=== PATIENT | male | born 1975 | race Caucasian/White ===

== ENCOUNTER 2025-04-19 11:59 | Outpatient (CLI) | payer OTHER, SELFPAY ==
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
--- OUTSIDE RECORDS SUMMARY | 2025-04-18 09:40 | XMS_ITS ---
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 Alcohol/Drug Use - Alcohol abuse runs on mother's side, doesn't know father's side Bipolar - Possibly father - - - - - - - - - - -. * Medications: T aking Suboxone 4-1 MG Film 1 film under the tongue and allow to dissolve Sublingual 3 times a day , Taking Cephalexin 500 MG Tablet 1 tablet Orally every 6 hrs , Taking FLUoxetine HCl 20 MG Capsule 1 capsule Orally Once a day , Taking OLANZapine 10 MG Tablet 1 tablet Orally at bedtime , Taking hydrOXYzine Pamoate 25 MG Capsule 1 capsule as needed Orally 4 times a day , Taking Nicotine 21 MG/24HR Patch 24 Hour 1 patch to skin Transdermal Once a day , Not-Taking Mirtazapine 15 MG Tablet 1 tablet at bedtime Orally Once a day , Not-Taking FLUoxetine HCl 40 MG Capsule 1 capsule Orally Once a day , Not-Taking OLANZapine 10 MG Tablet 1 tablet Orally Once a day , Not-Taking Narcan 4 MG/0.1ML Liquid as directed Nasally , Not-Taking Buprenorphine HCl-Naloxone HCl 8-2 MG Film 1 film under the tongue and allow to dissolve Sublingual once daily around noon , Not-Taking Buprenorphine HCl-Naloxone HCl 12-3 MG Film 1 film under the tongue and allow to dissolve Sublingual once in the morning and once in the evening , Not-Taking Miconazole Nitrate 2 % Cream 1 application Externally Twice a day , Notes to Pharmacist: on CRU, thanks, Medication List reviewed and reconciled with the patient * Allergies: N o Known Drug Allergy. Objective: * Vitals: I nitials: KS, Wt:130.6, Ht: 70, BMI:18.74, BP:106/86, HR:69, Oxygen sat %:98, Temp:98.3, RR:18. * Examination: G eneral Examination: GENERAL APPEARANCE: a lert, in no acute distress. HEAD: n ormocephalic, atraumatic. EYES: B OTH EYES, sclera anicteric, pupils equal, round, reactive to light and accommodation , extraocular movement intact (EOMI). EARS B OTH EARS, normal. NOSE: n mita patent. ORAL CAVITY: m ucosa moist, missing teeth, carious teeth.? THROAT: p harynx normal. NECK/THYROID: n cole supple , no thyromegaly. SKIN: w arm and dry, no rashes, no suspicious lesions. HEART: r egular rate and rhythm with occassional pauses, S1, S2 normal, no S3, S4, no murmurs, rubs, gallops. LUNGS: r espirations regular and easy, clear to auscultation bilaterally, no wheezes, rales, rhonchi, clear anteriorly and posteriorly, good air movement. ABDOMEN: b owel sounds present, soft, nontender, nondistended, no masses palpable, no organomegaly . EXTREMITIES: n o edema. PERIPHERAL PULSES: 2 + throughout. NEUROLOGIC: n onfocal, gait normal. PSYCH: a ppropriate affect. Assessment: * Assessment: 1. A dult general medical examination - Z00.00 (Primary) 2 . I V drug user - F19.90 3 . O pioid use disorder - F11.99 4 . I rregularly irregular heart rhythm - I49.9 5 . N ausea - R11.0 Plan: * Treatment: Value Reference Range B AC .000 ?LAB: QuantiFERON-TB Gold Plus (611034) (Ordered for 04/18/2025) ?LAB: HIV Screen *HIV 1, 2 Ab, p24 Ag ([id number]) (Ordered for 04/18/2025) ?LAB: 14 Panel Urine Drug Screen (Ordered for 04/18/2025) (Collection Date & Time - 04/18/2025)* Value Reference Range T HC neg * C OC neg * M OP (OPI) neg * A MP neg * M ET neg * B AR neg * B ZO neg * M DMA neg * M TD neg * O XY neg * P CP neg * B UP pos * T CA neg * F TY neg Notes: Admit to the [facility] and initiate standing/protocol orders: The following PRN medications may be self-administered by patients under the supervision of approved staff or administered by nursing staff: * Ibuprofen 200mg, 2-4 tablets by mouth (with food) every 6 hours as needed for pain (unless on lithium). (NOTE: Ibuprofen and acetaminophen may be given together, but alternating is recommended for continuous pain relief. * Guaifenesin 400 mg, 1 tablet by mouth every four hours as needed for cough and chest congestion (take with large glass of water). * Loratadine 10 mg, 1 tablet by mouth daily as needed for allergies, watery itchy eyes, or sinus drainage. * Throat Lozenges, up to 4 tablets by mouth every three to four hours as needed for sore throat. * Antacid tablets, 1-2 tablets by mouth every one to two hours as needed for indigestion or heart burn. If the client prefers liquid, could use: Liquid Antacid : 1 ounce by mouth up to four times dailyas needed for indigestion or heartburn * Omeprazole 20mg, 1 capsule by mouth once daily for 14 days for frequent heartburn (frequent heartburn is more than 2 episodes per week). Do not exceed 14 days. Do not give to client already taking a proton-pump inhibitor: esomeprazole (Nexium), lansoprazole (Prevacid), pantoprazole (Protonix), rabep razole (Aciphex), dexlansoprazole (Dexilant) * Zofran ODT disintegrating (under the tongue) 4 mg, 1-2 tablets every 8 hours as needed for nausea/vomiting. * Milk of Magnesia (MOM): 1 ounce (30 milliliters) by mouth every day as needed for constipation.ORMiralax: Stir and fully dissolve 17 grams (1 packet or 1 capful to measured line) in any 4 to 8 ounces of beverage then drink once daily for constipation. Do not use for more than 7 days.ORDocusate 100 mg, 1 capsule twice daily as needed for constipation * Hydrocortisone 1% Cream, apply topically (to the skin) to the affected area up to three times dailyas needed for itching or inflammation (avoid eyes and genitals). * 2% Antifungal Cream, apply topically (to the skin) as directed as needed to affected areas for athlete's foot or jock itch. * Triple Antibiotic Ointment, apply topically (to the skin) up to three times daily as needed for minor cuts and scrapes. * Carmex or Chapstick, apply topically (to the skin) as needed for chapped lips and skin. * Orajel, apply to affected areas as needed for mouth or tooth pain. * Lubricating Eye Drops, instill 1-2 drops to the affected eye(s) as needed for dry/irritated eye(s). * Hemorrhoid medications, apply to affected area according to directions as needed for hemorrhoid discomfort and itch. * Nix (Permethrin 1%) cream 2 ounces, apply topically (to the skin) as directed as needed for head lice. * Sunscreen 30 SPF, Apply to exposed skin prior to exposure to sun. The following PRN medications must be approved by nursing staff before self- administration by patients: * Diphenhydramine 25 mg, 2 tablets by mouth every 4 hours as needed for allergic reaction or itchy rash.Caution: Do not use hydroxyzine within 4 hours of diphenhydramine and vice versa. * Loperamide 2 mg capsules, may give two capsules by mouth for the initial dose, followed by one capsule up to 3 times a day as needed for diarrhea. * Acetaminophen 500 mg, 1 - 2 tablets by mouth every six hours as needed for pain. (NOTE: Ibuprofen and acetaminophen may be given together, but alternating is recommended for continuous pain relief). * Oxygen-May administer oxygen 2L/min via nasal cannula if O2 saturation is less than 92%, AND clientcomplains of shortness of breath. Target O2 saturation is 94-98%.Caution: Remember too much oxygen can be detrimental to a client with COPD. Oxygen is a drug and should be delivered by trained staff only. Nurses may remove superficial splinters and sutures from skin lacerations. May apply gauze or bandages to any weeping wounds. Contact nursing if there is pus, a foul odor, increased pain/redness/swelling, or if soaking through bandages. ??2.?IV drug user?LAB: Hepatitis B Surface Antigen (HBsAg Screen) (Ordered for 04/18/2025) 3.?Irregularly irregular heart rhythm?Imaging: Electrocardiogram (EKG) (Ordered for 04/18/2025) Notes: Patient asymptomatic, states he has had the pauses for years, but no record of EKG perfromedin past here, will get one today.??4.?Nausea? Start Ondansetron HCl Tablet, 4 MG, 1 tablet, Orally, every 8 hours As needed for nausea, 7 days, 21 Tablet, Refills 0.??5.?Others? Notes:Continue treatment as recommended by [facility] staff. Encouraged patient to obtain routine medical care with patient's own primary care provider or establish as a patient at [facility] if no current primary care provider.?? * Recommended Wellness and Pre vention Guidelines: * S tatus A lert L ast Done N ext Due A ction Taken N ONCOMPLIANT A lcohol use screening - 1 06/19/2024 - - N ONCOMPLIANT C holesterol screen (genl pop) - 1 06/19/2024 - - N ONCOMPLIANT C olorectal cancer screening - 1 06/19/2024 - - N ONCOMPLIANT I nfluenza vaccine (over 50) - 1 06/19/2024 - - * Preventive Medicine: Counseling: S MOKING: P atient counselled on the dangers of tobacco use and urged to quit. 1 06/19/2024 .. * Follow Up: p rn * * Electronic signature of Willis Hayes on 04/19/2025 at 12:11 PM COATING TECHNICIAN Sign off status: Pending * Provider: Janessa Hayes APN Date: 06/19/2024 Generated for Ilan moreno/Alpesh/Kay on: 06/20/2024 12:11 PM COATING TECHNICIAN History and Physical Notes * HPI (History of Present Illness) Category c/o Denies Symptom Duration Details Notes Catego ry Notes Interim History Was hospitalized Yes Emergency room visit Yes Depression Screening PHQ-9 Little interest or pleasure in doing things: More than half the days Feeling down, depressed, or hopeless: No t at all Trouble falling or staying asleep, or sl eeping too much: Nearly every day Feeling tired or having little energy: S everal days Poor appetite or overeating: Nearly ever y day Feeling bad about yourself o r that you are a failure, or have let yourself or your family down: Several days Trouble concentrating on thi ngs, such as reading the newspaper or watching television: More than half the days Moving or speaking so slowly that other people could have noticed; or the opposite, being so fidgety or restless that you have been moving around a lot more than usual: Nearly every day Thoughts that you would be b jorge off or of hurting yourself in some way: Not at all Total Score: 15 Interpretation: Moderately Severe Depres darrin Intervention Depression Screen ing Findings: Positive Follow-Up for Depression: Raul mclaughlin is admitted to a [facility] residential unit where their mental health is monitored - unit nursing staff have access to this encounter note Summary Presents for physical as patient is admitted to Residential Unit at [facility].Patient presents from: homelessConcerns of: Ta useChronic Conditions: Hep C., known heart pauses (pt states he is asymptomatic and has had it for years)Recent Hospitalizations: [facility] (04/09-04/18) for Ta detoxPCP: deniesPsych provider: deniesDrug/ETOH use: fentanyl: 10-20 caps/dayLast time used: 2 weeks agoRoute: IVPrevious Tx: ChestnutWithdrawal s/s: nauseaCigarette/vaping use: 2-3 cigs/daySexual activity: deniesDenies SI/HIHad a sore on L outer ankle, on antibx for it currently. Denies any issues with it anymore. Screening [place] Suicid e Severity Rating Scale (LF) Do you want to initiate with : Screener form 1. Wish to be : Have you wished you were or wished you could go to sleep and not wake up?: No 2. Suicidal Thoughts: Have you actually had any thoughts of killing yourself?: No 6. Suicide Behavior Question: Have you ever done anything,started to do anything, or prepared to end your life?: No Interpretation:: Low Risk Preventative Health and Wellness follow-up Action Plans for Cli nical Quality Measures: Colorectal Cancer Screening:: Discussed need for colorectal cancer screening. Patient declined. . CSSRS Interpretation and Follow Up Plan CSSRS Interpretation and Follow Up Plan CSSRS Screen documented using SF: Yes Risk Disposition from SF: Low - No Follo w Up Plan Required Follow Up Plan: No Follow Up Plan requir ed at this time. Timeframe of Screening: Today Examination Category Field Details Notes Category Notes General Examination GENERAL APPEARANCE: alert, in no a cute distress HEAD: normocephalic, atrau matic EYES: BOTH EYES, sclera an icteric, pupils equal, round, reactive to light and accommodation , extraocular movement intact (EOMI) EARS BOTH EARS, normal NOSE: nares patent THROAT: pharynx normal NECK/THYROID: neck supple , no thy romegaly HEART: regular rate and rhy thm with occassional pauses, S1, S2 normal, no S3, S4, no murmurs, rubs, gallops LUNGS: respirations regular and easy, clear to auscultation bilaterally, no wheezes, rales, rhonchi, clear anteriorly and posteriorly, good air movement ABDOMEN: bowel sounds present , soft, nontender, nondistended, no masses palpable, no organomegaly NEUROLOGIC: nonfocal, gait amee l SKIN: warm and dry, no mary hes, no suspicious lesions EXTREMITIES: no edema PERIPHERAL PULSES: 2+ throughout PSYCH: appropriate affect ORAL CAVITY: mucosa moist, missin g teeth, carious teeth
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
--- NOTE | 2025-04-19 | ECG_ITS ---
Test Date: 2025-04-19 12:24:39 Measurements Intervals Yulan Rate: 58 P: 77 NJ: 153 QRS: -28 QRSD: 106 T: 78 QT: 407 QTc: 401 Interpretive Statements SINUS BRADYCARDIA CANNOT R/O SEPTAL INFARCT, AGE INDETERMINATE BASELINE ARTIFACT- I, II, AVR, V5-V6 ABNORMAL ECG No previous ECG available for comparison Electronically Signed On 04-19-2025 12:29:10 CHIEF ENGINEER'S HELPER by Ryan Gregorio D.O.
--- OUTSIDE RECORDS SUMMARY | 2025-04-19 12:11 | XMS_ITS | Patient Health Record ---
Author Organization [facility] Address [address] [place] [address] Phone [phone] Care Team Providers Care Dispatcher Street Department Name Role Phone Floresita Liu APRN Primary Care Provider [phone] Umesh Coleman Unavailable [phone] Ellie Kraus Unavailable [phone] Sally Perera Unavailable [phone] Francesca Moreland Unavailable [phone] Ac Hayes Unavailable Ellie Sherwood Unavailable [phone] Allergies Allergen (clinical drug ingredient) Drug/Non Drug Allergy documented on EMR Reaction Allergy Type Onset Date Status No Known Drug Allergy Unknown Drug Allergy Active Results Component Value Reference Range Flag Notes Breathalyzer Order date: 04/18/2025 Reviewed date:04/19/2025 11:01:39 AM Interpretation: Performing Lab: Notes/Report: CLARISSE .000 14 Panel Urine Drug Screen Order date: 04/18/2025 Reviewed date:04/19/2025 11:01:39 AM Interpretation: Performing Lab: Notes/Report: THC neg MITZI neg MOP (OPI) neg AMP neg MET neg BAR neg BZO neg MDMA neg MTD neg OXY neg PCP neg BUP pos TCA neg FTY neg 12 Panel Urine Drug Screen Order date: 10/19/2024 Reviewed date:10/19/2024 11:06:35 AM Interpretation: Performing Lab: Notes/Report: THC neg MITZI neg MOP (OPI) neg AMP neg MET neg BAR neg BZO pos MDMA neg MTD neg OXY neg PCP neg BUP pos Hemoglobin A1c* Order date: 10/27/2024 Reviewed date:11/02/2024 10:46:07 AM Interpretation: Performing Lab:[facility] [place] [address] [facility], Phone - [phone], Director - [place] Notes/Report: Hemoglobin A1c 5.6 4.8-5.6 % . Prediabetes: 5.7 - 6.4 Diabetes: >6.4 Glycemic control for adults with diabetes: <7.0 Ambiguous Test Order Attempts to contact your facility to clarify an ambiguous test order were unsuccessful. Please contact the laboratory to verify the request. Specimens are routinely held for 7 days from date of receipt. Ambiguous test order: PLEASE CLARIFY REQUEST FOR: [id number] HCV RNA TIGRE Qual rfx to Quant - NOT ORDERABLE. 12 Panel Urine Drug Screen Order date: 10/15/2024 Reviewed date:10/15/2024 10:19:47 AM Interpretation: Performing Lab: Notes/Report: THC neg MITZI neg MOP (OPI) neg AMP neg MET neg BAR neg BZO neg MDMA neg MTD neg OXY neg PCP neg BUP POS Magnesium, Serum* Order date: 10/15/2024 Reviewed date:10/26/2024 01:10:21 PM Interpretation: Performing Lab:[facility] [place] [address] [facility], Phone - [phone], Director - [place] Notes/Report: Magnesium 2.0 1.6-2.3 mg/dL Phosphorus, Serum* Order date: 10/15/2024 Reviewed date:10/26/2024 01:10:21 PM Interpretation: Performing Lab:[facility] [place] [facility], Phone - [phone], Director - [place] Notes/Report: Phosphorus 4.0 2.8-4.1 mg/dL C-Reactive Protein, Quant Order date: 10/15/2024 Reviewed date:10/26/2024 01:10:21 PM Interpretation: Performing Lab:[facility] [place] [address] [place] [address], Phone - [phone], Director - [place] Notes/Report: C-Reactive Protein, Quant 6 0-10 mg/L Specimen Status Report TNP Test not performed. Insufficient specimen to perform or complete analysis. TEST: [id number] Hepatitis C Quantitation Panel: [id number] Interpretation: Panel: [id number] QuantiFERON-TB Gold Plus (18 2879) Order date: 10/15/2024 Reviewed date:10/26/2024 01:10:21 PM Interpretation: Performing Lab:[facility], [address] [facility], Phone - [phone], [facility] Notes/Report: QuantiFERON Incubation Incubation performed. QuantiFERON-TB Gold Plus Negative Negative No response to M tuberculosis antigens detected. Infection with M tuberculosis is unlikely, but high risk individuals should be considered for additional testing (ATS/IDSA/CDC Clinical Practice Guidelines, 2017). The reference range is an Antigen minus Nil result of <0.35 IU/mL. Chemiluminescence immunoassay methodology QuantiFERON Criteria QuantiFERON-TB Gold Plus is a qualitative indirect test for M tuberculosis infection (including disease) and is intended for use in conjunction with risk assessment, radiography, and other medical and diagnostic evaluations. The QuantiFERON-TB Gold Plus result is determined by subtracting the Nil value from either TB antigen (Ag) value. The Mitogen tube serves as a control for the test. QuantiFERON TB1 Ag Value 0.05 QuantiFERON TB2 Ag Value 0.05 QuantiFERON Nil Value 0.14 QuantiFERON Mitogen Value >10.00 Rapid Plasma Reagin (RPR) Te st With Reflex to Quantitative RPR and Confirmatory Treponema pallidum Antibodies Order date: 10/15/2024 Reviewed date:10/26/2024 01:10:21 PM Interpretation: Performing Lab:[facility], [address] [facility], [place], Phone - [phone], Director - [place] Notes/Report: RPR Non Reactive Non Reactive Interpretation: Syphilis: RPR with Reflex to RPR Titer and Treponemal Antibodies, Traditional Screening and Diagnosis Algorithm Treponemal RPR RPR, Qn Ab Final Interpretation -------- --------- --- Non N/A N/A No laboratory evidence Reactive of syphilis. Retest in 2-4 weeks if recent exposure is suspected. -------- --------- --- Reactive >/=1:1 Non Nontreponemal antibodies Reactive detected. Syphilis unlikely; biological false positive possible. Retest in 2-4 weeks if recent exposure is suspected. -------- --------- --- Reactive >/=1:1 Reactive Treponemal and nontreponemal antibodies detected. Consistent with past or current (potential early) syphilis. Hepatitis C Virus Antibody w /Rflx to Quantitative Real-time PCR ([id number]) Order date: 10/15/2024 Reviewed date:10/26/2024 01:10:21 PM Interpretation: Performing Lab:[facility] [place] [address] [facility], Phone - [phone], Director - [place] Notes/Report: HCV Ab Reactive Non Reactive A Hepatitis C Quantitation TNP Test not performed. Insufficient specimen to perform or complete analysis. Test Information: The barb ntitative range of this assay is 15 IU/mL to 100 million IU/mL. Interpretation: TNP Test not performed. Insufficient specimen to perform or complete analysis. Hepatitis B Surface Antigen (HBsAg Screen) Order date: 10/15/2024 Reviewed date:10/26/2024 01:10:21 PM Interpretation: Performing Lab:[facility] [place] [address] [facility], Phone - [phone], Director - [place] Notes/Report: HBsAg Screen Negative Negative HIV Screen *HIV 1, 2 Ab, p24 Ag ([id number]) Order date: 10/15/2024 Reviewed date:10/26/2024 01:10:21 PM Interpretation: Performing Lab:[facility] [place] [facility], Phone - [phone], Director - [place] Notes/Report: HIV Ab/p24 Ag Screen Non Reactive Non Reactive HIV-1/HIV-2 antibodies and HIV-1 p24 antigen were NOT detected. There is no laboratory evidence of HIV infection. HIV Negative CMP 14 Comprehensive Metabol ic Panel* Order date: 10/15/2024 Reviewed date:10/26/2024 01:10:21 PM Interpretation: Performing Lab:[facility], [address] [facility], Phone - [phone], Director - [place] Notes/Report: Glucose 145 70-99 mg/dL H BUN 11 6-24 mg/dL Creatinine 0.64 0.76-1.27 mg/dL L eGFR 115 >59 mL/min/1.73 BUN/Creatinine Ratio 17 9-20 Sodium 139 134-144 mmol/L Potassium 4.6 3.5-5.2 mmol/L Chloride 103 96-106 mmol/L Carbon Dioxide, Total 21 20-29 mmol/L Calcium 8.9 8.7-10.2 mg/dL Protein, Total 6.1 6.0-8.5 g/dL Albumin 3.7 4.1-5.1 g/dL L Globulin, Total 2.4 1.5-4.5 g/dL Bilirubin, Total 0.2 0.0-1.2 mg/dL Alkaline Phosphatase 98 44-121 IU/L AST (SGOT) 43 0-40 IU/L H ALT (SGPT) 47 0-44 IU/L H CBC With Differential/Platel et* Order date: 10/15/2024 Reviewed date:10/26/2024 01:10:21 PM Interpretation: Performing Lab:[facility], [address] [facility], Phone - [phone], Director - [place] Notes/Report: WBC 5.6 3.4-10.8 x10E3/uL RBC 4.09 4.14-5.80 x10E6/uL L Hemoglobin 11.8 13.0-17.7 g/dL L Hematocrit 37.0 37.5-51.0 % L MCV 91 79-97 fL MCH 28.9 26.6-33.0 pg MCHC 31.9 31.5-35.7 g/dL RDW 13.0 11.6-15.4 % Platelets 309 150-450 x10E3/uL Neutrophils 56 Not Estab. % Lymphs 30 Not Estab. % Monocytes 6 Not Estab. % Eos 7 Not Estab. % Basos 1 Not Estab. % Neutrophils (Absolute) 3.1 1.4-7.0 x10E3/uL Lymphs (Absolute) 1.7 0.7-3.1 x10E3/uL Monocytes(Absolute) 0.4 0.1-0.9 x10E3/uL Eos (Absolute) 0.4 0.0-0.4 x10E3/uL Baso (Absolute) 0.0 0.0-0.2 x10E3/uL Immature Granulocytes 0 Not Estab. % Immature Grans (Abs) 0.0 0.0-0.1 x10E3/uL Breathalyzer Order date: 10/15/2024 Reviewed date:10/15/2024 10:20:06 AM Interpretation: Performing Lab: Notes/Report: CLARISSE 0.000 Reason For Referral Referral Date 04/19/2025 Referral Status Open Reason Colonoscopy Diagnosis 1 Colon cancer screeni (Z12.11) Referral Organization [facility] Referring Provider First Name Ac Referring Provider Last Name Abigail Referring Provider [facility] Referred Provider Specialty Gastroentero logy Referral Priority Routine Medications Medication SIG (Take, Route, Frequency, Duration) Notes Start Date End Date Diagnosis (ICD Code) Status Suboxone 4-1 MG Film 1 film under the tongue and allow to dissolve Sublingual 3 times a day; Duration: 7 days 5 Opioid use disorder (ICD_10 - F11.99) Active Mirtazapine 15 MG Tablet 1 tablet at bedtime Orally Once a day; Duration: 30 days PTSD (post-traumatic stress disorder) (ICD_10 - F43.10) Not-Taking Cephalexin 500 MG Tablet 1 tablet Orally every 6 hrs Adult general medical examination (ICD_10 - Z00.00) Active OLANZapine 10 MG Tablet 1 tablet Orally Once a day; Duration: 30 days Bipolar 1 disorder (ICD_10 - F31.9) Not-Taking FLUoxetine HCl 40 MG Capsule 1 capsule Orally Once a day; Duration: 30 days OCD (obsessive compulsive disorder) (ICD_10 - F42.9) Not-Taking FLUoxetine HCl 20 MG Capsule 1 [...] of both feet (ICD_10 - B35.3) Not-Taking Melatonin 5 MG Tablet 1 tablet at bedtime as needed Orally Once a day; Duration: 30 days 5 Adult general medical examination (ICD_10 - Z00.00) Active Multi Vitamin - Tablet 1 tablet Orally Once a day; Duration: 30 days 5 Adult general medical examination (ICD_10 - Z00.00) Active Narcan 4 MG/0.1ML Liquid as directed Nasally 5 Opioid use disorder (ICD_10 - F11.99) Not-Taking hydrOXYzine Pamoate 25 MG Capsule 1 capsule as needed Orally 4 times a day Adult general medical examination (ICD_10 - Z00.00) Active OLANZapine 10 MG Tablet 1 tablet Orally at bedtime Adult general medical examination (ICD_10 - Z00.00) Active Buprenorphine HCl-Naloxone HCl 12-3 MG Film [...] Opioid use disorder (ICD_10 - F11.99) Not-Taking Ondansetron HCl 4 MG Tablet 1 tablet Orally every 8 hours; Duration: 7 days As needed for nausea 5 Nausea (ICD_10 - R11.0) Active Social History Sex Observation Social History Observation Description Sex Observation Male Sexual Orientation Social History Observation Description Sexual Orientation Straight or heterose xual Gender Identity Social History Observation Description Gender Identity Male SDOH Assessments Date Tool Assessment Assessment LOINC Value Assessment Notes Goals Interventions General Notes 04/18 ALEX ZHANG (JOHN C: [id number] -[id number]) Total Score : 18 What was your release date? 2024 - - - - - - - - - - - ADDITIONAL SOCIAL HISTORY 10/20/2024: - - - - - - - - - - - PERSONAL BACKGROUND HISTORY Describe childhood- Horrible - raised by brother. Mother was service trainer, grandmother lived next door and cooked for [...] lithium, Zyprexa, Klonopin Inpt Psych Hospitalizations - [facility] for depression. Rehab as teenager Suicidal Ideation Hx - Endorses in 20s Suicide Attempt(s) - In 20s - cut self with a broken piece of [place] statute Homicidal Ideation - None Self-Injury/High [...] 04/18/2025 What is your current housing situation? 93457-9 I do not have housing (staying with others, in a hotel, in a long term, living outside on the street, on a beach, or in a park) (UC11048-5) Are you worried about losing your housing? 82282-9 Yes (LA33-6) What is the highest level of school that you have finished? 55793-0 High school diploma or GED (TW14037-0) What is your current work situation? 24668-1 Unemployed and seeking work (RW02249-2) In the past year, have you o r any family members you live with been unable to get any of the following when it was really needed? Check all that apply 87270-8 Medicine or any health care (medical, dental, mental health or vision) (MU25159-4) Food (SR41502-6) Clothing (IE41174-2) Utilities (GX81961-8) Phone (XM64586-5) Has lack of transportation k ept you from medical appointments, meetings, work or from getting things needed for daily living? 79738-0 Yes, it has kept me from medical appointments or from getting my medications (SI71407-7) Yes, it has kept me from non-medical meetings, appointments, work, or getting things needed for daily living (TY88593-8) How often do you see or talk to people that you care about and feel close to? (For example: talking to friends on the phone, visiting friends or family, going to yazdanism or club meetings) 79604-9 Less than once a week (KP17601-5) How stressed are you? Stress is when someone feels tense, nervous, anxious, or can\t sleep at night because their mind is troubled 08440-0 Quite a bit (MO02259-8) In the past year have you sp ent more than 2 nights in a row in a senior living, fpc, nursing home center, or juvenile correctional facility? 73055-2 Yes (LA33-6) Do you feel physically and emotionally safe where you currently live? 99052-7 Yes (LA33-6) In the past year, have you b een afraid of your partner or ex-partner? 71528-7 No (LA32-8) Are you a refugee? I [...] with others, in a hotel, in a long term, living outside on the street, on a [...] phone, visiting friends or family, going to yazdanism or club meetings) Less than once a week How stressed are you? Stress is when someone feels tense, nervous, anxious, or can\t sleep at night because their mind is troubled Quite a bit In the past year have you sp ent more than 2 nights in a row in a senior living, fpc, nursing home center, or juvenile correctional facility? Yes What [...] Provided? Yes Please specify Case Management Follow-up Miscellaneous Social Info Question Answer Notes Method [...] Use Alcohol Use Frequency: Monthly or less Additional Details Category Social Info Options Details Primary Social History Current Diet Stand antonietta Marshallese Diet Section Notes: - - - - - - - - - - - ADDITIONAL SOCIAL HISTORY 10/20/2024: - - - - - - - - - - - PERSONAL BACKGROUND HISTORY Describe childhood- Horrible - raised by brother. Mother was service trainer, grandmother lived next door and cooked for [...] Not working right now, experience in general [employer] History- Hx of drug-related charged Spiritual [...] lithium, Zyprexa, Klonopin Inpt Psych Hospitalizations - [facility] in [place] for depression. Rehab as teenager Suicidal Ideation Hx - Endorses in 20s Suicide Attempt(s) - In 20s - cut self with a broken piece of [place] statute Homicidal Ideation - None Self-Injury/High [...] Problem Status W/U Status Risk Notes Problem Mood disorder (02534814) Mood disorder (F39) Added On:2024 Active confirmed Problem Substance abuse (3563343150) Substance abuse (F19.10) Added On:2024 Active confirmed Problem Posttraumatic stress disorder (70999096) PTSD (post-traumatic stress disorder) (F43.10) Added On:2024 Active confirmed Problem Bipolar 1 disorder (111307433) Bipolar 1 disorder (F31.9) Added On:2024 Active confirmed Problem Neuropathy (674824340) Neuropathy (G62.9) Added On:2024 Active confirmed Problem Overweight (376887972) Over weight (E66.3) Added On:2024 Active confirmed Problem Physical examination, complete (77255278) Adult general medical examination (Z00.00) Added On:2024 Active confirmed Problem Obsessive-compuls raymond disorder (499177841) OCD (obsessive compulsive disorder) (F42.9) Added On:2024 Active confirmed Problem Malnutrition (1839121) Malnutrition (E46) Added On:2024 Active confirmed Problem Cardiac arrhythmia (417358498) Irregularly irregular heart rhythm (I49.9) Added On:2024 Active confirmed Problem Opioid use disorder (1329855445) Opioid use disorder (F11.99) Added On:2024 Active confirmed Problem Viral hepatitis type C (55671380) Hepatitis C test positive (B19.20) Added On:2024 Active confirmed Vital Signs Vital Sign Value Notes Appt Date Heart Rate 65 /min 04/19/2025 Temperature 98.3 degrees Fahrenheit 03/29 Respiratory Rate 18 /min 04/19/2025 Oximetry 99 % 04/19/2025 Blood pressure diastolic 60 mm Hg Height 70 in 04/19/2025 Blood pressure systolic 100 mm Hg 03/29 Weight 135.2 lbs 04/19/2025 BMI 19.4 kg/m2 04/19/2025 Encounters Date Time Type Facility Location Provider Diagnosis 10/22/19 09:40 AM Office Visit [facility] [place] [address] Umesh Coleman 10/29/19 10:20 AM Office Visit [facility] [place] [address] Umesh Coleman 04/18/20 09:40 AM Office Visit, Est Pt., Level 4 (17276) [facility] [place] [address] Ac Hayes Adult general medical examination Z00.00 ; Opioid use disorder F11.99 ; IV drug user F19.90 ; Irregularly irregular heart rhythm I49.9 and Nausea R11.0 04/19/20 11:00 AM Preventive Care Est Pt. Age 40-64 (90713) [facility] [place] [address] Ac Hayes Adult general medical examination Z00.00 ; Neuropathy G62.9 ; Colon cancer screening Z12.11 ; Diabetes mellitus screening Z13.1 ; Encounter for screening for lipid disorder Z13.220 ; Screening for thyroid disorder Z13.29 ; Malnutrition E46 ; Opioid use disorder F11.99 and Irregularly irregular heart rhythm I49.9 10/16/19 10:20 AM Office Visit, New Pt., Level 3 (97485) [facility] [place] [address] Umesh Coleman Patient underweight R63.6 ; Wrist pain, acute, left M25.532 ; Opioid use disorder F11.99 ; Exposure to potential infection Z20.9 ; Mood disorder F39 and Malnutrition E46 10/16/19 10:20 [facility] [place] [address] Francesca Moreland 10/20/19 11:00 AM Office Visit, Est Pt., Level 4 (00306) [facility] [place] [address] Ellie Kraus Opioid use disorder F11.99 ; Tinea pedis of both feet B35.3 and Cellulitis of left arm L03.114 10/21/19 10:00 AM Telehealth Office Visit, New Pt., Level 3 (32192) [address] [address] Sally Perera Bipolar 1 disorder F31.9 ; PTSD (post-traumatic stress disorder) F43.10 ; OCD (obsessive compulsive disorder) F42.9 ; Opioid use disorder F11.99 and Medication management Z79.899 10/27/19 25 11:00 AM Office Visit, Est Pt., Level 3 (02824) [place] [address] [place] [address] Ellie Kraus Opioid use disorder F11.99 10/28/19 08:40 AM Telehealth Office Visit, Est Pt., Level 3 (41003) [address] [address] Umesh Coleman Hyperglycemia R73.9 and Hepatitis C test positive B19.20 11/03/19 09:20 AM Telehealth Office Visit, Est Pt., Level 4 (49961) [address] [address] Sally Perera Bipolar 1 disorder F31.9 ; PTSD (post-traumatic stress disorder) F43.10 ; OCD (obsessive compulsive disorder) F42.9 ; Opioid use disorder F11.99 and Medication management Z79.899 11/10/19 11:00 AM Office Visit, Est Pt., Level 3 (50771) [facility] [address] [place] [address] Ellie Kraus Opioid use disorder F11.99 11/17/19 11:00 AM Office Visit, Est Pt., Level 3 (29262) [facility] [address] [place] [address] Ellie Kraus Over weight E66.3 and Opioid use disorder F11.99 04/18/20 10:40 AM Office Visit [facility] [address] [facility] [place] [address] Ellie Sherwood Substance abuse F19.10 10/16/19 02:28 PM Telephone Encounter [facility] [address] [place] [address] Umesh Coleman 10/16/19 03:32 PM Telephone Encounter [facility] [address] [facility] [place] [address] Floresita Liu 10/20/19 09:04 PM Telephone Encounter [address] [place] [address] Ellie Kraus 10/21/19 10:29 AM Telephone Encounter [facility] [address] [facility] [place] [address] Ellie Kraus 10/21/19 12:41 PM Telephone Encounter [address] [place] [address] Sally Perera 10/29/19 11:02 AM Telephone Encounter [facility] [place] [address] Floresita Liu Hepatitis C test positive B19.20 11/10/19 08:26 PM Telephone Encounter [address] [place] [address] Ellie Kraus 11/23/19 03:42 PM Telephone Encounter [address] [place] [address] Floresita Liu 03/03/20 10:11 AM Telephone Encounter [address] [place] [address] Floresita Liu 03/03/20 10:18 AM Telephone Encounter [facility] [place] [address] Floresita Liu Assessments Encounter Date Diagnosis (ICD Code) Assessment Notes Treat ment Notes Section Notes 04/18/2025 Substance abuse (ICD-10 - F19.10) 10/20/2024 PTSD (post-traumatic stress disorder) (ICD-10 - F43.10) Recommend trauma-based therapy, such as EMDR. 10/20/2024 Bipolar 1 disorder (ICD-10 - F31.9) 11/02/2024 Bipolar 1 disorder (ICD-10 - F31.9) 04/19/2025 Neuropathy (ICD-10 - G62.9) Patient denies wanting medications at this time. 11/16/2024 Over weight (ICD-10 - E66.3) 10/27/2024 Hyperglycemia (ICD-10 - R73.9) 10/19/2024 Tinea pedis of both feet (ICD-10 - B35.3) 04/18/2025 Adult general medical examination (ICD-10 - [...] there is pus, a foul odor, increased pain/redness/swelling , or if soaking through bandages. 04/19/2025 Adult general medical examination (ICD-10 - Z00.00) - The patient is due for labs, will call with results. - Discussed physical activity, healthy diet. Encouraged patient to aim for a goal of 150 minutes of moderate-intensity exercise and 2 days of strength training. Educated them on the importance of starting small and building on their successes. - Discussed healthier eating habits including frequent meals which are carb/protein balanced. Discussed avoidance of simple carbohydrates, encouraged portion-controlled complex carbohydrates. - Recommended increasing water intake and avoiding sugary beverages, excess caffeine and alcohol intake - Follow up in 3 months or sooner with any questions, concerns. - Patient denies any concerns with her plan of care. People verbalizes understanding and agrees to plan of care. 10/15/2024 Wrist pain, acute, left (ICD-10 - M25.532) 10/15/2024 Patient underweight (ICD-10 - R63.6) 10/19/2024 Opioid use disorder (ICD-10 - F11.99) Patient agrees to take medication as prescribed. Discussed medication side effects, adverse effects, risks, benefits, as well as interactions. Encouraged non-use of opioids. Client to make provider aware of any medication changes that could interact with treatment. Recommended participation in recovery groups/counseling services to help maintain sobriety. May contact the office with any questions or concerns. 11/09/2024 Opioid use disorder (ICD-10 - F11.99) Patient agrees to take medication as prescribed. Increasing by 4mg in morning. Monitor cravings. Discussed medication side effects, adverse effects, risks, benefits, as well as interactions. Encouraged non-use of opioids. Client to make provider aware of any medication changes that could interact with treatment. Recommended participation in recovery groups/counseling services to help maintain sobriety. May contact the office with any questions or concerns. 10/26/2024 Opioid use disorder (ICD-10 - F11.99) Patient agrees to take medication as prescribed. Discussed medication side effects, adverse effects, risks, benefits, as well as interactions. Encouraged non-use of opioids. Client to make provider aware of any medication changes that could interact with treatment. Recommended participation in recovery groups/counseling services to help maintain sobriety. May contact the office with any questions or concerns. 10/27/2024 Hepatitis C test positive (ICD-10 - B19.20) 10/28/2024 Hepatitis C test positive (ICD-10 - B19.20) 11/16/2024 Opioid use disorder (ICD-10 - F11.99) Patient agrees to take medication as prescribed. Increasing by 4mg in evenings. Monitor cravings. Discussed medication side effects, adverse effects, risks, benefits, as well as interactions. Encouraged non-use of opioids. Client to make provider aware of any medication changes that could interact with treatment. Recommended participation in recovery groups/counseling services to help maintain sobriety. May contact the office with any questions or concerns. 04/18/2025 Opioid use disorder (ICD-10 - F11.99) 10/15/2024 Opioid use disorder (ICD-10 - F11.99) COWS: Complete COWS and vitals every shift. for COWS over 1, initiate opiate protcol standing order medications: Tizanidine 4mg by mouth every 6 hours for 4 days. Clonidine 0.1mg by mouth every 6 hours while awake for 3 days. Hold medication if systolic blood pressure is less than 106. Gabapentin 300mg by mouth three times daily for 4 days. Gabapentin 600mg by mouth at bedtime for 4 days.Discharge planning: May discharge to residential treatment or home AFTER last dose if withdrawal symptoms have stopped, COWS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
--- OUTSIDE RECORDS SUMMARY | 2025-04-19 12:12 | XMS_ITS | Clinical Summary ---
Author Organization [facility] Address [address] [place] [address] Care Team Providers Care Supervisor [employer] Name Role Phone Unavailable Primary Care Provider Unavailabl e Source Comments [facility],non-owned Affiliates and Associated Physician Practices is amultiple site organization consisting of ambulatory clinics and hospital sitesin [place], [place], [place] and [place]. This disclosure is being madepursuant to the Care Everywhere program and may not contain all information available regarding this patient. Last updated 18.[facility] Allergies No known active allergies Medications * Be aware that medications may not be up to date on this document. Alwaysverify current medications with the patient. No known medications Active Problems Problem Noted Date Diagnosed Date Opioid use disorder 08/19/2020 Opioid withdrawal 08/19/2020 Anemia 08/19/2020 Hand abscess 08/17/2020 Hepatitis C virus infection without hepatic coma 08/17/2020 Other symptoms and signs inv olving cognitive functions and awareness 10/28/2014 Family History Medical History Relation Name Comments CAD (Coronary Artery Disease) Mother Relation Name Status Comments Father Mother Social History Tobacco Use Types Packs/Day Years Used Date Smoking Tobacco: Every Day Cigarettes Alcohol Use Standard Drinks/Week Comments Never 0 (1 standard drink = 0.6 oz pur e alcohol) Sex and Gender Information Value Date Recorded Sex Assigned at Not on file Legal Sex Male 6:15 PM [employer] Gender Identity Not on file Sexual Orientation Not on file Last Filed Vital Signs Vital Sign Reading Time Taken Comments Blood Pressure 140/80 08/19/2020 12:25 PM CDT Pulse 60 08/19/2020 12:25 PM CDT Temperature 37.1 C (98.8 F) 08/19/2020 12:25 PM CDT Respiratory Rate 20 08/19/2020 12:25 PM CDT Oxygen Saturation 100% 08/19/2020 12:25 PM CDT Inhaled Oxygen Concentration - - Weight 61.2 kg (135 lb) 08/16/2020 8:26 PM CDT Height 175.3 cm (5' 9) 08/16/2020 8:26 PM CDT Body Mass Index 19.94 08/16/2020 8:26 PM CDT Plan of Treatment Health Maintenance Due Date Last Done Comments COLOGUARD (AGES 45-75) - COL ON CA SCREENING 1974 COLON MONITORING 1974 COLONOSCOPY - COLON CA SCREENING 1974 CT COLONOGRAPHY - COLON CA SCREENING 1974 Colorectal Cancer Screening 1974 FIT - COLON CA SCREENING 1974 FLEX SIG - COLON CA SCREENING 1974 LIPID TESTING 1974 DTAP/TDAP/TD VACCINES (1 - Tdap) 1993 HEPATITIS B VACCINE (1 of 3 - 19+ 3-dose series) 1993 DEPRESSION SCREENING 04/28/2024 PNEUMOCOCCAL VACCINE 50+ (1 of 1 - PCV) 2024 ZOSTER VACCINE (1 of 2) 2024 COVID-19 VACCINE (1 - 2024-2 6 season) 2024 INFLUENZA VACCINE (#1) 2024 HIV SCREENING Completed 10/29/2014 HEPATITIS C SCREENING Completed 08/17/2020 , 10/29/2014, 10/28/2014 HIB VACCINE Aged Out No longer eligi ble based on patient's age to complete this topic HPV VACCINE Aged Out No longer eligi ble based on patient's age to complete this topic MENINGOCOCCAL (Group B) VACCINE SHARED DECISION-MAKING Aged Out No longer eligible based on patient's age to complete this topic MENINGOCOCCAL GROUPS A/C/Y/W VACCINE Aged Out No longer eligible b ased on patient's age to complete this topic Procedures Procedure Name Priority Date/Time Associated Diagnosis Comments HEPATITIS C RNA QUANTITATIVE Routine 10/29/2014 6:25 AM CDT HIV-1 HIV-2 ANTIGEN/ANTIBODY Routine 10/29/2014 6:25 AM CDT from Last 3 Months or Most Recently Relevant to Health Maintenance Results * HIV-1 HIV-2 ANTIGEN/ANTIBODY (10/29/2014 6:25 AM CDT) HIV Antigen/Antibod y 1 & 2 Non-reacti ve Non-react raymond [facility] Comment: Neither HIV-1 p24 Antigen nor HIV-1/HIV-2 Antibodies are detected. Blood specimen (specimen) BLOOD SPECIMEN / Unknown 10/29/2014 6:25 AM CDT 10/29/2014 6:57 AM CDT us Ousmane Avila MD LAB - HEMATOLOGY ORDERA BLES Final Result [facility] [address] [phone] * (ABNORMAL) HEPATITIS C RNA QUANTITATIVE PCR (10/29/2014 6:25 AM CDT) Pathologist [facility] Hepatitis C Virus RNA PCR Specimen: 1 ml Serum Reference: [id number] Test: Hepatitis C RT-PCR (Quantitative) RESULT 157,500 IU/ml Reference Range Not Detected INTERPRETATION The quantitative Hepatitis C viral RNA RT-PCR determination was performed on a serum sample and is reported in IU/ml. Detection and quantification was successful. COMMENT The Hepatitis C (HCV) viral RNA analysis utilized a serum sample, real-time reverse freezer assistant PCR, and is reported as Not Detected/Detected (<50)/Quantity (IU/ml) or >35,000,000 IU/ml. The analytical sensitivity of the assay is 7 IU/ml (95% of samples with this HCV RNA level were detected). Values less than 7 IU/ml are reported as Not Detected (<7 IU/ml); values greater than 7 IU/ml and less than 50 IU/ml are reported as Detected (<50). The linear range is from 50 IU/ml to 35,000,000 IU/ml. Values greater than 35,000,000 IU/ml are reported as >35,000,000 IU/ml. The detection/quantita tion of HCV RNA in serum or plasma is based on the isolation of HCV RNA with reverse freezer assistant of genomic HCV RNA followed by real-time PCR in the presence of a reference standard RNA. The standard ensures that RNA was isolated, that no general significant inhibitors of the RT-PCR process were present. This test was developed and its performance characteristics determined by the [facility] at [facility]. It has not been cleared or approved by the U.S. Food and Drug Administration. The FDA has determined that such clearance or approval is not necessary. This test is used for clinical purposes. It should not be regarded as investigational or for research. This laboratory is certified under the Clinical Laboratory Improvement Amendments of 1988 (CLIA-88) as qualified to perform high complexity clinical laboratory testing. Test performed at [facility], [address] [place] [id number] This case has been personally reviewed and interpreted by the attending (teaching) pathologist. Final Diagnosis performed by Hunter Jane PHD. Electronically signed 11/01/2014(A) [facility] ([facility]) Blood specimen (specimen) BLOOD SPECIMEN / Unknown 10/29/2014 6:25 AM CDT 10/29/2014 6:57 AM CDT us Ousmane Avila MD LAB - CHEMISTRY ORDERAB LES Final Result [facility] ([facility]) from Last 3 Months or Most Recently Relevant to Health Maintenance Advance Directives * Full Code (Latest Code Status on File) Date Activated Date Inactivated Comments 08/17/2020 3:52 AM 08/19/2020 5:25 PM
== END 2025-04-19 12:00 | disposition home or self-care (01) ==
PROVIDERS: Visit Provider Registered Nurse
DX: R94.31 Abnormal electrocardiogram [ECG] [EKG] (principal); I49.9 Cardiac arrhythmia, unspecified
CPT/HCPCS: 93005